=== PATIENT | female | born 1965 | race Caucasian/White ===

== ENCOUNTER 2023-05-18 20:36 | Emergency (ER) | payer MEDICAID ==
[~2023-05-18] VITALS: Ht 172.7 cm; Wt 95.3 kg
[2023-05-18] MEDS ORDERED: PREDNISONE20 M1 PO (22:49)
[2023-05-18] MEDS ORDERED: ZITHROMAX250 MG PO (22:49)
== END 2023-05-18 23:14 | disposition home or self-care (01) ==
LOC: ED 20:36
DX: B34.9 Viral infection, unspecified (principal); Z20.822 Contact with and (suspected) exposure to COVID-19; I10 Essential (primary) hypertension; I25.10 Atherosclerotic heart disease of native coronary artery without angina pectoris; Z88.8 Allergy status to other drugs, medicaments and biological substances

== ENCOUNTER 2023-05-31 14:05 | Emergency (ER) | payer MEDICAID ==
[~2023-05-31] VITALS: Wt 108.9 kg
[~2023-05-31 14:05] MED LIST: PREDNISONE20 M1 PO; ZITHROMAX250 MG PO
== END 2023-05-31 17:12 | disposition home or self-care (01) ==
LOC: ED 14:05
DX: S60.212A Contusion of left wrist, initial encounter (principal); S60.221A Contusion of right hand, initial encounter; I25.10 Atherosclerotic heart disease of native coronary artery without angina pectoris; I10 Essential (primary) hypertension; Z88.8 Allergy status to other drugs, medicaments and biological substances; Z87.891 Personal history of nicotine dependence; W19.XXXA Unspecified fall, initial encounter; Y93.89 Activity, other specified; Y92.89 Other specified places as the place of occurrence of the external cause; Y99.8 Other external cause status